=== PATIENT | male | born 1950 | race Caucasian/White ===

== ENCOUNTER → 2023-04-23 14:55 | Outpatient (CLI) | payer MEDICARE, SELFPAY ==
--- NOTE | 2023-04-23 14:57 | DI.RAD.S_ITS ---
PROCEDURE: XR ELBOW RT 2V INDICATIONS: inj 6dPTA, swelling, reduced ROM TECHNIQUE: 3 views of the elbow were acquired. COMPARISON: None. FINDINGS: Bones: No fractures or dislocations. No suspicious bony lesions. Soft tissues: No elbow joint effusion. No suspicious soft tissue calcifications. IMPRESSION: No acute osseous abnormality. Dictated by: Stas Lea M.D. on 04/23/2023 at 15:53 Approved by: Stas Lea M.D. on 04/23/2023 at 15:54
--- NOTE | 2023-04-23 14:57 | DI.RAD.S_ITS ---
PROCEDURE: XR SHOULDER RT MIN 2V INDICATIONS: inj 6dPTA, swelling, reduced ROM, AC/distal clavicle tender TECHNIQUE: 3 views of the shoulder were acquired. COMPARISON: None. FINDINGS: Bones: No fractures or dislocations. No suspicious bony lesions. Visualized ribs appear intact. Mild glenohumeral and acromioclavicular joint osteoarthritis. No osseous erosions. Soft tissues: No suspicious soft tissue calcifications. IMPRESSION: No fracture. No acute osseous lesion. If symptoms and/or clinical suspicion for pathology persists, further assessment with repeat radiographs (7-10 days) or advanced imaging (e.g. CT, MRI or bone scan) should be considered. Dictated by: Amanda Stone MD, PhD on 04/23/2023 at 15:38 Approved by: Amanda Stone MD, PhD on 04/23/2023 at 15:39
== END ==
PROVIDERS: PCP Internal Medicine; Referring Provider Student in an Organized Health Care Education/Training Program; Visit Provider Student in an Organized Health Care Education/Training Program
DX: M19.011 Primary osteoarthritis, right shoulder (principal); M25.511 Pain in right shoulder; M25.521 Pain in right elbow
CPT/HCPCS: 73030; 73070